=== PATIENT | female | born 1975 | race Caucasian/White ===

== ENCOUNTER 2017-03-21 08:33 | Emergency (ER) | END 2017-03-21 11:08 | disposition home or self-care (01) ==

== ENCOUNTER 2017-09-01 10:46 | Emergency (ER) | END 2017-09-01 13:03 | disposition home or self-care (01) ==

== ENCOUNTER 2018-01-24 18:17 | Emergency (ER) | END 2018-01-24 19:51 | disposition home or self-care (01) ==

== ENCOUNTER 2018-07-28 14:08 | Inpatient (IN) | payer MEDICAID ==
[~2018-07-28] VITALS: Ht 162.6 cm; Wt 104.9 kg
[~2018-07-28 14:08] MED LIST: ACET500C5 PO; ALBU18HF INHALATION; AZIT250T PO; CYAN100T PO; IBUP-1542 PO; IBUP800T48 PO; METH500T PO; PRED20TA PO
[2018-07-28] MEDS ORDERED: PANTOPRAZOLE IV 80 MG in SOD CHLORIDE 0.9% 100 ML IVPB STA (15:32)
[2018-07-28] MEDS ORDERED: PANTOPRAZOLE IV 80 MG in SOD CHLORIDE 0.9% 100 ML IV STA (15:32)
--- NOTE | 2018-07-28 19:32 | ERD ---
ER Documentation Chief Complaint Chief Complaint Pt sent for hgb 5.8, hct 21.4 HPI This is a 43-year-old female who is here for anemia. The patient saw her primary care physician for checkup and he called her and told her hemoglobin was 5.8 and to go to the ER. The patient complains of generalized weakness but no clear dyspnea on exertion no heavy periods, no rectal bleeding or melena, no vomiting. Patient says she has no chest pain no fever cough or abdominal pain. ROS All systems reviewed and are negative except as per history of present illness. Medications Home Meds Discontinued Reported Medications Cyanocobalamin* (Vitamin B12*) 100 Mcg Tab, 100 MCG PO DAILY, TAB 01/08/14 Discontinued Scripts Methocarbamol* (Robaxin*) 500 Mg Tab, 500 MG PO Q6, #20 TAB Prov:SAIRA FRANCIS PA-C 01/24/18 Ibuprofen* (Motrin*) 600 Mg Tab, 600 MG PO Q6, #30 TAB Prov:SAIRA FRANCIS PA-C 01/24/18 Prednisone* (Prednisone*) 20 Mg Tab, 40 MG PO DAILY for 4 Days, TAB Prov:SAIRA FRANCIS PA-C 01/24/18 Methocarbamol* (Robaxin*) 500 Mg Tab, 500 MG PO Q8, #30 TAB Prov:GERI LEE DO 09/01/17 Ibuprofen* (Motrin*) 800 Mg Tab, 800 MG PO Q8H PRN for PAIN AND OR ELEVATED TEMP, #30 TAB Prov:GERI LEE DO 09/01/17 Acetaminophen* (Tylophen*) 500 Mg Capsule, 1 CAP PO Q6H PRN for PAIN AND OR ELEVATED TEMP, #20 CAP Prov:EDUAR ROBINS MD 03/21/17 Prednisone* (Prednisone*) 20 Mg Tab, 40 MG PO DAILY for 4 Days, TAB Start March 22, 2017 Prov:EDUAR ROBINS MD 03/21/17 Azithromycin* (Zithromax*) 250 Mg Tablet, 250 MG PO .EstradaPACK DIRECTED, #6 TAB TAKE 500 MG (2 TABS) THE FIRST DAY THEN 250 MG (1 TAB) DAYS 2-5 Prov:EDUAR ROBINS MD 03/21/17 Prednisone* (Prednisone*) 20 Mg Tab, 40 MG PO DAILY, #8 TAB 0 Refills Prov:APRIL POTTER PA-C 04/07/15 Albuterol Sulfate* (Ventolin HFA*) 18 Gm Hfa.aer.ad, 2 PUFF INHALATION Q6H, #1 INHALER 0 Refills Prov:APRIL POTTER PA-C 04/07/15 Albuterol Sulfate* (Ventolin HFA*) 18 Gm Hfa.aer.ad, 2 PUFF INHALATION Q6H, #1 INHALER 0 Refills Prov:APRIL POTTER PA-C 03/28/15 Allergies Allergies: Coded Allergies: No Known Drug Allergies (Verified Allergy, Mild, 07/28/18) PMhx/Soc History of Surgery: Yes () Anesthesia Reaction: No Hx Neurological Disorder: No Hx Respiratory Disorders: Yes (asthma) Hx Cardiac Disorders: No Hx Psychiatric Problems: No Hx Miscellaneous Medical Probl: No Hx Alcohol Use: No Hx Substance Use: No Hx Tobacco Use: No Smoking Status: Never smoker FmHx Family History: No coronary disease Physical Exam Vitals Vital Signs Date Temp Pulse Resp B/P (MAP) Pulse Ox O2 O2 Flow FiO2 Time Delivery Rate 07/28/18 98.0 59 22 108/69 100 Room Air 2.0 18:28 (82) Nasal Cannula 07/28/18 97.1 66 14 111/73 100 Room Air 17:27 (86) 07/28/18 97.1 71 14 111/75 100 Room Air 17:14 (87) 07/28/18 98.8 78 17 108/72 100 Room Air 16:15 (84) 07/28/18 Nasal 2 16:07 Cannula 07/28/18 98.8 73 17 112/73 100 Room Air 15:23 (86) 07/28/18 98.8 91 20 121/66 100 14:11 (84) Physical Exam Const: Well-developed, well-nourished Head: Atraumatic, normocephalic Eyes: Normal Conjunctiva, PERRLA, EOMI, normal sclera, no nystagmus ENT: Normal External Ears, Nose and Mouth, moist mucus membranes. Neck: Full range of motion. No meningismus, no lymphadenopathy. Resp: Clear to auscultation bilaterally, no wheezing, rhonchi, rales Cardio: Regular rate and rhythm, no murmurs, S1 S2 present Abd: Soft, non tender x 4, non distended. Normal bowel sounds, no guarding or rebound, no pulsitile abdominal masses or bruits Skin: No petechiae or rashes, no ecchymosis , no maculopapular rash Back: No midline or flank tenderness Ext: No cyanosis, or edema, FROM x 4, normal inspection, neurovascularly intact x 4 Neur: Awake and alert, STR 5/5 x 4, sensation intact x 4, no focal findings, cerebellum intact Psych: Normal Mood and Affect Result Diagram: 07/28/18 1525 07/28/18 1525 Results 24 hrs Laboratory Tests Test 07/28/18 15:25 White Blood Count 7.6 10^3/ul Red Blood Count 2.66 10^6/ul Hemoglobin 5.7 g/dl Hematocrit 20.1 % Mean Corpuscular Volume 75.6 fl Mean Corpuscular Hemoglobin 21.4 pg Mean Corpuscular Hemoglobin Concent 28.4 g/dl Red Cell Distribution Width 16.9 % Platelet Count 306 10^3/UL Mean Platelet Volume 10.3 fl Immature Granulocytes % 0.700 % Neutrophils % % Segmented Neutrophils % (Manual) 66 % Band Neutrophils % (Manual) 4 % Lymphocytes % % Lymphocytes % (Manual) 21 % Monocytes % % Monocytes % (Manual) 7 % Eosinophils % % Eosinophils % (Manual) 2 % Basophils % % Nucleated Red Blood Cells % 0.0 /100WBC Immature Granulocytes # 0.050 10^3/ul Neutrophils # 10^3/ul Neutrophils # (Manual) 5.0 10^3/ul Band Neutrophils # 0.3 10^3/ul Lymphocytes (Manual) 1.5 10^3/ul Lymphocytes # 10^3/ul Monocytes # 10^3/ul Monocytes # (Manual) 0.5 10^3/ul Eosinophils # 10^3/ul Basophils # 10^3/ul Nucleated Red Blood Cells # 10^3/ul Pathologist Review (Hematology) YES Platelet Estimate NORMAL Giant Platelets 1 % Polychromasia 2+ Hypochromasia 1+ Anisocytosis 2+ Microcytosis 2+ Prothrombin Time 12.6 Sec Prothrombin Time Ratio 1.0 INR International Normalized Ratio 0.93 Activated Partial Thromboplast Time 26.3 Sec Sodium Level 139 mmol/L Potassium Level 4.3 mmol/L Chloride Level 102 mmol/L Carbon Dioxide Level 30 mmol/L Anion Gap 7 Blood Urea Nitrogen 18 mg/dl Creatinine 0.77 mg/dl Est Glomerular Filtrat Rate mL/min > 60 mL/min Glucose Level 109 mg/dl Calcium Level 9.0 mg/dl Total Bilirubin 0.3 mg/dl Direct Bilirubin 0.00 mg/dl Indirect Bilirubin 0.3 mg/dl Aspartate Amino Transf (AST/SGOT) 41 IU/L Alanine Aminotransferase (ALT/SGPT) 53 IU/L Alkaline Phosphatase 63 IU/L Total Protein 8.2 g/dl Albumin 4.2 g/dl Globulin 4.00 g/dl Albumin/Globulin Ratio 1.05 Current Medications Medications Dose Sig/Mabel Start Time Status Last (Trade) Ordered Route PRN Stop Time Admin Dose Reason Admin Pantoprazole 100 ml @ ONCE STAT 07/28/18 DC 80 mg/Sodium 400 mls/hr IVPB 15:32 Chloride 07/28/18 15:46 Pantoprazole 100 ml @ ONCE STAT 07/28/18 80 mg/Sodium 10 mls/hr IV 15:32 Chloride 07/29/18 01:31 Procedures/MDM The patient's hemoglobin came back at 5.7 hematocrit 20.1. I will transfuse 2 units of packed red blood cells and admit the patient for anemia work-up. Because of the shortage of Protonix, I will hold this for now as she is not having any type of acute GI bleed Critical Care Time: 30 minutes Treatments/Evaluations: Close monitoring and treatment of unstable vital signs, cardiorespiratory, and neurologic status, while maintaining tight balance of fluid, respiratory, and cardiac interventions. This time includes discussing the case with the patient and the patient's family. This time does not include all procedures stated elsewhere in this record. This time also includes reviewing old records, labs and radiological studies. This time includes examining and re- examining the patient. Additionally, this time also includes arranging care with admitting and consulting physicians. Departure Diagnosis: Primary Impression: Severe anemia Condition: Stable MILA CONTRERAS DO Jul 28, 2018 19:32
[2018-07-28] MEDS ORDERED: ACETAMINOPHEN 325 MG TAB PO PRN ×2 (20:00)
[2018-07-28] MEDS ORDERED: morphine 2 MG INJ IV PRN (20:00)
[2018-07-28] MEDS ORDERED: ONDANSETRON 4 MG TAB PO PRN (20:00)
[2018-07-28] MEDS ORDERED: BISACODYL (EC) 5 MG TAB PO PRN (20:00)
[2018-07-28] MEDS ORDERED: NACL 0.9% 3 ML SYG IV SCH (20:00)
[2018-07-28] MEDS ORDERED: DOCUSATE SODIUM 100 MG CAP PO PRN (20:00)
[2018-07-28] MEDS ORDERED: ONDANSETRON 4 MG INJ IV PRN (20:00)
[2018-07-28] MEDS ORDERED: SOD CHLORIDE 0.9% 100 ML ONE (20:24)
[2018-07-28] MEDS ORDERED: IOHEXOL 300MG/ML 150 ML BTL ONE (20:24)
[2018-07-28 21:13] VITALS: PULSE 77
[2018-07-28 21:50] VITALS: Ht 162.6 cm; Wt 104.9 kg
[2018-07-28 23:03] VITALS: BP 108/68; PULSE 63; RESP 19
[2018-07-29] VITALS (10 sets, daily range): BP systolic 101–113; BP diastolic 59–71; PULSE 59–72; RESP 18–20
--- NOTE | 2018-07-29 00:43 | HP ---
Date/Time of Note Date/Time of Note DATE: 07/29/18 TIME: 00:43 Assessment/Plan VTE Prophylaxis SCD applied (from Nsg): Yes Pharmacological prophylaxis: NA/contraindicated Pharm contraindication: low risk/ambulating Lines/Catheters IV Catheter Type (from Nrsg): Saline Lock Assessment/Plan Hospital Course This is a 43-year-old female being admitted to the telemetry floor for: #1 Severe microcytic anemia: No clear source of bleeding at the current time. Suspicion at the current time is for possible etiology given patient's previous history of fibroids. We will proceed with a CT of the abdomen pelvis with and without contrast to further evaluate. Will check a stool occult blood. If there is mention of fibroids or any other further genitourinary pathology will obtain a ultrasound of the pelvis and consult [employer]. Patient has been ordered 2 units of packed red blood cells. Will repeat CBC in the a.m. every 6 hours. Will hold any anticoagulations. As there is no signs of any overt upper or lower GI bleed, will hold off on any acid blockers at the current time. Will check iron stores. We will also checktsh, lactic dehydrogenase, haptoglobin, reticulocyte. #2 morbid obesity: We will check hemoglobin A1c, lipid panel, TSH #3 DVT and GI prophylaxis: CDs, no GI prophylaxis indicated Further treatment strategy will be implemented as per the clinical course Result Diagram: 07/28/18 1525 07/28/18 1525 Results 24hrs Laboratory Tests Test 07/28/18 15:25 White Blood Count 7.6 Red Blood Count 2.66 #L Hemoglobin 5.7 #*L Hematocrit 20.1 #L Mean Corpuscular Volume 75.6 L Mean Corpuscular Hemoglobin 21.4 #L Mean Corpuscular Hemoglobin Concent 28.4 L Red Cell Distribution Width 16.9 #H Platelet Count 306 Mean Platelet Volume 10.3 # Immature Granulocytes % 0.700 H Neutrophils % Segmented Neutrophils % (Manual) 66 Band Neutrophils % (Manual) 4 Lymphocytes % Lymphocytes % (Manual) 21 Monocytes % Monocytes % (Manual) 7 Eosinophils % Eosinophils % (Manual) 2 Basophils % Nucleated Red Blood Cells % 0.0 Immature Granulocytes # 0.050 H Neutrophils # Neutrophils # (Manual) 5.0 Band Neutrophils # 0.3 Lymphocytes (Manual) 1.5 Lymphocytes # Monocytes # Monocytes # (Manual) 0.5 Eosinophils # Basophils # Nucleated Red Blood Cells # Pathologist Review (Hematology) YES Platelet Estimate NORMAL Giant Platelets 1 H Polychromasia 2+ Hypochromasia 1+ Anisocytosis 2+ Microcytosis 2+ Prothrombin Time 12.6 Prothrombin Time Ratio 1.0 INR International Normalized Ratio 0.93 Activated Partial Thromboplast Time 26.3 Sodium Level 139 Potassium Level 4.3 Chloride Level 102 Carbon Dioxide Level 30 Anion Gap 7 Blood Urea Nitrogen 18 Creatinine 0.77 Est Glomerular Filtrat Rate mL/min > 60 Glucose Level 109 Calcium Level 9.0 Total Bilirubin 0.3 Direct Bilirubin 0.00 Indirect Bilirubin 0.3 Aspartate Amino Transf (AST/SGOT) 41 Alanine Aminotransferase (ALT/SGPT) 53 Alkaline Phosphatase 63 Total Protein 8.2 H Albumin 4.2 Globulin 4.00 H Albumin/Globulin Ratio 1.05 Serum HCG, Qualitative NEGATIVE HPI/ROS Admit Date/Time Admit Date/Time Jul 28, 2018 at 19:37 Hx of Present Illness cc; abnormal labs This is a 43-year-old female who is here for anemia. The patient saw her primary care physician for checkup and he called her and told her hemoglobin was 5.8 and to go to the ER. The patient complains of generalized weakness but no clear dyspnea on exertion. no heavy periods, no hematemesis, no rectal bleeding or melena, no vomiting. Patient says she has no chest pain no fever cough or abdominal pain. Apparently to the RN she reported a history of leukemia as a child however when questioned again regarding this she denies it. She does report anemia. On review of her medical records there was a mention of previous uterine fibroid. allergies: nkda meds: see philippe ROS Const: As per HPI Eyes : No pain discharge or redness or change in visual acuity ENT: No pain, sore throat, congestion, congestion, dysphagia or discharge Respiratory: No shortness of breath, cough, sputum, wheezing, or pleuritic pain Cardiovascular: No chest pain, palpitation, PND, or edema GI : no change in appetite, abdominal pain, nausea, vomiting, diarrhea, constipation, or change in the color his stool Genitourinary: No dysuria, hematuria, flank pain , discharge or CVA tenderness Musculoskeletal: No joint pain, back pain, neck pain, restricted range of motion in neck or joints Skin: No rash, bruising or hives Neuro: No headache, dizziness, syncope, seizure, focal weakness Endocrine: No polyuria, polydipsia, temperature intolerance Psych: No hallucination, depression, anxiety or suicidal ideation PMH/Family/Social Past Medical History Anemia, questionable history of leukemia Medications Current Medications Pantoprazole 80 mg/Sodium Chloride 100 ml @ 10 mls/hr ONCE STAT IV ; Start 07/28/18 at 15:32; Stop 07/29/18 at 01:31 Ondansetron HCl (Zofran Inj) 4 mg ER BRIDGE PRN IV NAUSEA/VOMITING; Start 07/28/18 at 20:00; Stop 07/29/18 at 19:59 Acetaminophen (Tylenol Tab) 650 mg ER BRIDGE PRN PO .MILD PAIN 1-3 OR TEMP; Start 07/28/18 at 20:00; Stop 07/29/18 at 19:59 IV Flush (NS 3 ml) 3 ml PER PROTOCOL IV ; Start 07/28/18 at 20:00 Ondansetron HCl (Zofran Tab) 4 mg Q6H PRN PO NAUSEA/VOMITING; Start 07/28/18 at 20:00 Acetaminophen (Tylenol Tab) 650 mg Q6H PRN PO .PAIN 1-3 OR TEMP; Start 07/28/18 at 20:00 Morphine Sulfate (morphine) 2 mg Q4H PRN IV .PAIN 7-10; Start 07/28/18 at 20:00 Docusate Sodium (Colace) 100 mg Q12H PRN PO .CONSTIPATION; Start 07/28/18 at 20:00 Bisacodyl (Dulcolax) 5 mg DAILY PRN PO .CONSTIPATION; Start 07/28/18 at 20:00 Coded Allergies: No Known Drug Allergies (Verified Allergy, Mild, 07/28/18) Past Surgical History x2 Family History Significant Family History: no pertinent family hx Social History Alcohol Use: none Smoking Status: Never smoker Drug Use: none Exam/Review of Systems Vital Signs Vitals Vital Signs Date Temp Pulse Resp B/P (MAP) Pulse Ox O2 O2 Flow FiO2 Time Delivery Rate 07/29/18 65 00:00 07/28/18 98.1 19 108/68 99 23:03 (81) 07/28/18 Room Air 2.0 20:51 Nasal Cannula Exam Exam General: Patient is a pleasant female currently lying in bed in no acute distress HEENT: Atraumatic, normocephalic. The pupils are equal, round and reactive. Extraocular motor are intact Neck: Supple with full range of motion. No rigidity or meningismus Chest: Nontender Lungs: Clear to auscultation bilaterally no crackles rales or wheezing Heart: Normal S1-S2, Regular rhythm and rate. No murmur, S3, or S4 Abdomen: Morbidly obese, soft , nontender, nondistended , bowel sounds are present. No guarding no rebound tenderness , No masses or organomegaly. No costovertebral temporal angle mass Extremities: Normal to inspection, no edema no cyanosis Neurologic: Normal mental status, speech normal, cranial nerves II through XII are intact, motor and sensory are intact, SEUN BUITRAGO Jul 29, 2018 00:43
--- NOTE | 2018-07-29 02:29 | CONS ---
Assessment/Plan Assessment/Plan Assessment/Plan (Daily) Please refer to the consultation note by Dr. Garcia Consultation Date/Type/Reason Admit Date/Time Jul 28, 2018 at 19:37 Date of Consultation: Jul 29, 2018 Type of Consult Gynecology Reason for Consultation Severe anemia Date/Time of Note DATE: 07/29/18 TIME: 02:27 Hx of Present Illness 43-year-old admitted for severe anemia and currently receiving blood transfusion Constitutional: no complaints, improved Eyes: no complaints ENT: no complaints Respiratory: no complaints Cardiovascular: no complaints Gastrointestinal: no complaints Genitourinary: no complaints Musculoskeletal: no complaints Skin: no complaints Neurologic: no complaints Endocrine: no complaints Lymphatic: no complaints Psychological: no complaints, nl mood/affect Immunologic: no complaints Past Medical History Home Meds Discontinued Reported Medications Cyanocobalamin* (Vitamin B12*) 100 Mcg Tab, 100 MCG PO DAILY, TAB 01/08/14 Discontinued Scripts Methocarbamol* (Robaxin*) 500 Mg Tab, 500 MG PO Q6, #20 TAB Prov:SAIRA FRANCIS PA-C 01/24/18 Ibuprofen* (Motrin*) 600 Mg Tab, 600 MG PO Q6, #30 TAB Prov:SAIRA FRANCIS PA-C 01/24/18 Prednisone* (Prednisone*) 20 Mg Tab, 40 MG PO DAILY for 4 Days, TAB Prov:SAIRA FRANCIS PA-C 01/24/18 Methocarbamol* (Robaxin*) 500 Mg Tab, 500 MG PO Q8, #30 TAB Prov:GERI LEE DO 09/01/17 Ibuprofen* (Motrin*) 800 Mg Tab, 800 MG PO Q8H PRN for PAIN AND OR ELEVATED TEMP, #30 TAB Prov:GERI LEE DO 09/01/17 Acetaminophen* (Tylophen*) 500 Mg Capsule, 1 CAP PO Q6H PRN for PAIN AND OR ELEVATED TEMP, #20 CAP Prov:EDUAR ROBINS MD 03/21/17 Prednisone* (Prednisone*) 20 Mg Tab, 40 MG PO DAILY for 4 Days, TAB Start March 22, 2017 Prov:EDUAR ROBINS MD 03/21/17 Azithromycin* (Zithromax*) 250 Mg Tablet, 250 MG PO .ZACH DIRECTED, #6 TAB TAKE 500 MG (2 TABS) THE FIRST DAY THEN 250 MG (1 TAB) DAYS 2-5 Prov:EDUAR ROBINS MD 03/21/17 Prednisone* (Prednisone*) 20 Mg Tab, 40 MG PO DAILY, #8 TAB 0 Refills Prov:ABBEYAPRIL PA-C 04/07/15 Albuterol Sulfate* (Ventolin HFA*) 18 Gm Hfa.aer.ad, 2 PUFF INHALATION Q6H, #1 INHALER 0 Refills Prov:APRIL POTTER PA-C 04/07/15 Albuterol Sulfate* (Ventolin HFA*) 18 Gm Hfa.aer.ad, 2 PUFF INHALATION Q6H, #1 INHALER 0 Refills Prov:APRIL POTTER PA-C 03/28/15 Medications Current Medications Ondansetron HCl (Zofran Inj) 4 mg ER BRIDGE PRN IV NAUSEA/VOMITING; Start 07/28/18 at 20:00; Stop 07/29/18 at 19:59 Acetaminophen (Tylenol Tab) 650 mg ER BRIDGE PRN PO .MILD PAIN 1-3 OR TEMP; Start 07/28/18 at 20:00; Stop 07/29/18 at 19:59 IV Flush (NS 3 ml) 3 ml PER PROTOCOL IV ; Start 07/28/18 at 20:00 Ondansetron HCl (Zofran Tab) 4 mg Q6H PRN PO NAUSEA/VOMITING; Start 07/28/18 at 20:00 Acetaminophen (Tylenol Tab) 650 mg Q6H PRN PO .PAIN 1-3 OR TEMP; Start 07/28/18 at 20:00 Morphine Sulfate (morphine) 2 mg Q4H PRN IV .PAIN 7-10; Start 07/28/18 at 20:00 Docusate Sodium (Colace) 100 mg Q12H PRN PO .CONSTIPATION; Start 07/28/18 at 20:00 Bisacodyl (Dulcolax) 5 mg DAILY PRN PO .CONSTIPATION; Start 07/28/18 at 20:00 Allergies: Coded Allergies: No Known Drug Allergies (Verified Allergy, Mild, 07/28/18) Social History Smoking Status: Never smoker Exam/Review of Systems Exam Vitals Vital Signs Date Temp Pulse Resp B/P (MAP) Pulse Ox O2 O2 Flow FiO2 Time Delivery Rate 07/29/18 65 00:00 07/28/18 98.1 19 108/68 99 23:03 (81) 07/28/18 Room Air 2.0 20:51 Nasal Cannula Constitutional: alert, oriented, well developed Results Result Diagram: 07/28/18 1525 07/28/18 1525 Results 24hrs Hematology - 72 Hrs Test 07/28/18 15:25 07/29/18 05:48 Hematocrit 20.1 % (37.0-47.0) #L 26.0 % (37.0-47.0) #L Hemoglobin 5.7 g/dl (12.0-16.0) 7.7 g/dl (12.0-16.0) #L Mean Corpuscular 21.4 pg (29.0-33.0) #L 23.3 pg (29.0-33.0) L Hemoglobin Mean Corpuscular 28.4 g/dl (32.0-37.0) L 29.6 g/dl (32.0-37.0) L Hemoglobin Concent Mean Corpuscular Volume 75.6 fl (82.0-101.0) L 78.5 fl (82.0-101.0) L Mean Platelet Volume 10.3 fl (7.4-10.4) # 10.0 fl (7.4-10.4) Monocytes # (Manual) 0.5 10^3/ul (0.3-0.9) Platelet Count 306 10^3/UL (140-415) 280 10^3/UL (140-415) Red Blood Count 2.66 10^6/ul (4.20-5.40) 3.31 10^6/ul (4.20-5.40) #L #L Red Cell Distribution 16.9 % (11.5-14.5) #H 18.8 % (11.5-14.5) H Width White Blood Count 7.6 10^3/ul (4.8-10.8) 7.0 10^3/ul (4.8-10.8) Chemistry Test 07/28/18 15:25 07/29/18 05:48 Sodium Level 139 mmol/L (135-144) 139 mmol/L (135-144) Potassium Level 4.3 mmol/L (3.5-5.1) 3.9 mmol/L (3.5-5.1) Chloride Level 102 mmol/L (97-110) 103 mmol/L (97-110) Carbon Dioxide Level 30 mmol/L (21-31) 28 mmol/L (21-31) Anion Gap 7 (5-13) 8 (5-13) Blood Urea Nitrogen 18 mg/dl (7-20) 14 mg/dl (7-20) Creatinine 0.77 mg/dl (0.44-1.00) 0.77 mg/dl (0.44-1.00) Est Glomerular Filtrat > 60 mL/min (>60) > 60 mL/min (>60) Rate mL/min Glucose Level 109 mg/dl (70-220) 99 mg/dl (70-220) Calcium Level 9.0 mg/dl (8.4-10.2) 8.9 mg/dl (8.4-10.2) Total Bilirubin 0.3 mg/dl (0.2-1.3) 0.8 mg/dl (0.2-1.3) Direct Bilirubin 0.00 mg/dl (0.00-0.20) 0.00 mg/dl (0.00-0.20) Indirect Bilirubin 0.3 mg/dl (0-1.1) 0.8 mg/dl (0-1.1) Aspartate Amino 41 IU/L (15-46) 49 IU/L (15-46) H Transf (AST/SGOT) Alanine 53 IU/L (13-69) 57 IU/L (13-69) Aminotransferase (ALT/SGPT) Alkaline Phosphatase 63 IU/L (42-121) 57 IU/L (42-121) Total Protein 8.2 g/dl (6.1-8.1) H 7.4 g/dl (6.1-8.1) Albumin 4.2 g/dl (3.3-4.9) 3.7 g/dl (3.3-4.9) Globulin 4.00 g/dl (1.3-3.2) H 3.70 g/dl (1.3-3.2) H Albumin/Globulin Ratio 1.05 1.00 Serum HCG, Qualitative NEGATIVE (NEGATIVE) Hemoglobin A1c 6.2 % (0-5.9) H Magnesium Level 2.1 mg/dl (1.7-2.5) Iron Level 82 ug/dl (35-150) Total Iron Binding Capacity 449 ug/dl (241-421) H Percent Iron Saturation 18 % SAT (22-52) L Ferritin 5.5 ng/ml (6.2-137.0) L Lactate Dehydrogenase 774 IU/L (313-618) H Triglycerides Level 86 mg/dl (0-149) Cholesterol Level 161 mg/dl (100-200) LDL Cholesterol, Calculated 107 mg/dl HDL Cholesterol 37 mg/dl (34-88) Cholesterol/HDL Ratio 4.3 RATIO Thyroid Stimulating Pending Hormone (TSH) Imaging Imaging PROCEDURE: CT abdomen and pelvis with and without contrast. CLINICAL INDICATION: Anemia. Leukemia. Uterine fibroid. TECHNIQUE: CT of the abdomen/pelvis was performed utilizing axial images with reconstructions in sagittal and coronal planes before and following the intravenous administration of 100 cc of Omnipaque-300 contrast. The administered radiation dose is CTDI 23.60, 23.07 mGy, DLP 1365.99, 1330.75 mGy-cm. One or more of the following dose reduction techniques were used: Automated exposure control, Adjustment of the mA and/or kV according to patient size, or Use of iterative reconstruction technique. DICOM images are available. COMPARISON: There are no similar studies submitted for comparison. FINDINGS: Lung bases: The lung bases are clear.The heart is normal size without pericardial effusion. CT ABDOMEN: Gastrointestinal tract: There is no bowel obstruction. The The appendix is normal size without inflammatory changes.No abnormal colonic wall thickening is identified.There is no pneumoperitoneum. Liver: The liver is enlarged. There is hepatic fatty infiltration. There is no intrahepatic ductal dilatation. Gallbladder: A large gallstone is noted. Pancreas: The pancreas is grossly unremarkable. Spleen: The spleen is normal size. There is a 3.8 cm septated splenic cystic les ion which is indeterminate. There are few calcified lesions within the spleen which may represent splenic granulomas versus treated disease. Kidneys: The kidneys are normal in size and contour.No renal calculi are identified.There is no evidence of hydronephrosis. Adrenal glands: The bilateral adrenal glands are unremarkable. Retroperitoneum: There is no retroperitoneal adenopathy.The aorta is normal in caliber. CT PELVIS: Pelvic organs: The uterus is present. There is a probable 1.3 cm left lateral uterine body fibroid extending into the endometrium. There is also heterogeneity of the lower uterine segment/cervix measuring 2.5 cm. Bladder: The bladder is unremarkable. There is no pelvic free fluid.No pelvic adenopathy is identified. Osseous structures: No destructive lytic or blastic osseous lesion is identified. IMPRESSION: 1. No acute abdominal pathology. 2. There is a 3.8 cm septated splenic cystic lesion which is indeterminate. There are few calcified lesions within the spleen which may represent splenic granulomas versus treated disease. MRI of the abdomen with and without contrast may be performed as clinically warranted. 3. Cholelithiasis. 4. Hepatomegaly and hepatic fatty infiltration. Correlate with LFTs. 5. Heterogeneity of the lower uterine segment/cervix measuring 2.5 cm. This may represent uterine fibroid or Nabothian cyst. Cervical malignancy cannot be excluded. Ultrasound of the pelvis and further workup is recommended as clinically warranted. 6. No abdominal lymphadenopathy. Further findings as detailed above. RPTAT: HVF .Praneeth Bah MD, MD Date Time Electronically viewed and signed by .Praneeth Bah MD, MD on 07/28/2018 21:14 .F/ CC: SEUN BUITRAGO [id number] [place] [address] Radiology Main Line: [phone] DIAGNOSTIC IMAGING REPORT Patient: DELIA BENNETT : 1975 Age: 43 Sex: F MR #: [id number] DOS: 07/29/18 0000 Ordering MD: SEUN BUITRAGO MD [facility]: US Pelvis. CLINICAL INDICATION: Questionable uterine mass on CT scan TECHNIQUE: Transabdominal and transvaginal pelvic ultrasound are performed. COMPARISON: 07/28/2018 and 01/08/2014 FINDINGS: The uterus is heterogeneous in echogenicity and anteverted in orientation. The uterus measures 10.2 x 4.9 x 5.8 cm. There is a 1.8 cm posterior fundal intramural fibroid. A heterogeneous slightly thickened endometrium is seen measuring 1.6 cm.. The cervix is normal in appearance. As before there are multiple Nabothian cyst. This likely accounts for the appearance on CT scan. Right ovary is identified. There is 1.7 1.9 cm simple appearing right ovarian cyst / follicle. Left ovary is not seen. There are no complex adnexal masses. Normal Doppler flow is noted right ovary. Right ovary measures 1.9 x 2.0 cm. There is no free fluid in the pelvis IMPRESSION: 1. 1.6 cm intramural fibroid. 2. Thickened slightly heterogeneous appearing endometrium. This should be reevaluated after 1 cycle to document resolution to normal thickness. 3. Cluster Nabothian cyst. This likely corresponds delete lesion suspected on CT scan. 4. Right ovary unremarkable with small follicles. 5. Left ovary not seen. There are no complex adnexal masses RPTAT: HH .Sj Gonzalez MD, MD Date Time Electronically viewed and signed by .Sj Gonzalez MD, MD on 07/29/2018 11:35 .W/ CC: SEUN BUITRAGO [id number] Medications Medication Current Medications Ondansetron HCl (Zofran Inj) 4 mg ER BRIDGE PRN IV NAUSEA/VOMITING; Start 07/28/18 at 20:00; Stop 07/29/18 at 19:59 Acetaminophen (Tylenol Tab) 650 mg ER BRIDGE PRN PO .MILD PAIN 1-3 OR TEMP; Start 07/28/18 at 20:00; Stop 07/29/18 at 19:59 IV Flush (NS 3 ml) 3 ml PER PROTOCOL IV ; Start 07/28/18 at 20:00 Ondansetron HCl (Zofran Tab) 4 mg Q6H PRN PO NAUSEA/VOMITING; Start 07/28/18 at 20:00 Acetaminophen (Tylenol Tab) 650 mg Q6H PRN PO .PAIN 1-3 OR TEMP; Start 07/28/18 at 20:00 Morphine Sulfate (morphine) 2 mg Q4H PRN IV .PAIN 7-10; Start 07/28/18 at 20:00 Docusate Sodium (Colace) 100 mg Q12H PRN PO .CONSTIPATION; Start 07/28/18 at 20:00 Bisacodyl (Dulcolax) 5 mg DAILY PRN PO .CONSTIPATION; Start 07/28/18 at 20:00 PAM MARTIN MD Jul 29, 2018 02:29
[2018-07-29] MEDS ORDERED: LORAZEPAM 2 MG INJ IV PRN (06:00)
--- NOTE | 2018-07-29 17:03 | CONS ---
Assessment/Plan Assessment/Plan Hospital Course (Demo Recall) Severe anemia Unclear etiology Cannot rule out AMMUNITION COMPONENTS INSPECTOR versus GI origin Patient currently being evaluated by primary care physician rule out GI origin Cannot rule out AMMUNITION COMPONENTS INSPECTOR origin for anemia. Cycles lately irregular with oligomenorrhea menometrorrhagia consistent with anovulatory cycles patient also appears to be prediabetes based on hemoglobin A1c Due to body habitus and prediabetes cystitis and perimenopausal anovulatory cycles at risk for endometrial hyperplasia/endometrial cancer Recommended the patient to proceed with endometrial biopsy. Ultrasound otherwise unremarkable. Biopsy can be done as outpatient and primary AMMUNITION COMPONENTS INSPECTOR office. Recommended patient to be seen in primary AMMUNITION COMPONENTS INSPECTOR office after discharge from the hospital for Pap smear, endometrial biopsy and completion of work-up Patient also due for mammogram. Denies feeling any breast lump or mass. Breast exam normal. Patient recommended to take progesterone 10 days a month for menstrual regulation after and if mammogram is normal Follow-up with thyroid hormones as hypothyroidism or hyperthyroidism can also contribute to abnormal bleeding. Recommended continuation of work-up for GI rule out GI origin Recommended patient to take iron twice a day with stool softener as well as vitamin C for repletion of iron stores Patient can be discharged home with above plan Will sign off at this time Please reconsult if you have any other questions. Consultation Date/Type/Reason Admit Date/Time Jul 28, 2018 at 19:37 Date of Consultation: Jul 29, 2018 Type of Consult AMMUNITION COMPONENTS INSPECTOR consultation Reason for Consultation Evaluation for severe anemia, AMMUNITION COMPONENTS INSPECTOR origin Date/Time of Note DATE: 07/29/18 TIME: 16:54 Hx of Present Illness 43-year-old G2, P2 female was sent by primary care physician to the hospital due to severe anemia noted during physical examination. Patient denies any symptoms. She denies any headache, fatigue, shortness of breath, chest pain, dizziness, lightheadedness or any other complaints. She denies any exercise intolerance. Patient reports cycles has been regular with average flow but recently skipped her cycles for a couple of months and had been bleeding intermittently since March for the last 4 months. Patient denies any significant AMMUNITION COMPONENTS INSPECTOR history in the past except that had a history of abnormal Pap smear that was offered in the past biopsy however never was done. Patient reports cycle has been always regular monthly except this recent episode of abnormal uterine bleeding with oligomenorrhea menometrorrhagia. Patient had a CT of abdomen and pelvis that showed evidence of a questionable lesion in the cervical area however the rest of the pelvis exam is unremarkable. There is no evidence of lymphadenopathy. Pelvic ultrasound showed small fibroids and area of concern in the cervix was noted to be likely related to presence of nabothian cysts. No other pelvic pathology noted. Endometrial lining thickened that appeared to be correlated to the menstruation and recommended to have a follow-up ultrasound after cycle. Patient had been admitted currently underwent blood transfusion. She is request to go home. She denies any known history of thyroid problem in the past. She denies any change in her bowel habits, pencil thin stool or blood in the stool or black tarry dark stool. She is currently being evaluated by primary team for GI versus AMMUNITION COMPONENTS INSPECTOR origin for severe anemia. Constitutional: no complaints, improved; No chills, No diaphoresis, No disoriented, No febrile, No poor po, No requiring IVF, No requiring O2, No other Eyes: No no complaints, No pain, No discharge, No redness, No visual change, No other ENT: No no complaints, No bleeding, No pain, No congestion, No discharge, No dysphagia, No sore throat, No other Respiratory: No no complaints, No pain, No cough, No pleuritic pain, No shortness of breath, No sputum, No wheezing, No other Cardiovascular: No no complaints, No chest pain, No edema, No lightheadedness, No orthopenea, No palpitations, No paroxysmal nocturnal dyspnea, No other Gastrointestinal: blood; No no complaints, No pain, No constipation, No decreased appetite, No diarrhea, No flatus, No nausea, No passing stool, No vomiting, No other Genitourinary: bleeding; No no complaints, No dysuria, No discharge, No flank pain, No hematuria, No other Musculoskeletal: No no complaints, No back pain, No bone/joint pain, No neck pain, No restricted range of motion, No swelling, No other Skin: No no complaints, No bruising, No erythema, No laceration, No pruritis, No rash, No skin lesions, No other Neurologic: No no complaints, No confusion, No dizziness, No focal-weakness, No headache, No syncope, No seizure, No other Endocrine: No no complaints, No polyuria, No polydypsia, No dry skin, No temp intolerance, No other Lymphatic: No no complaints, No adenopathy, No tender nodes, No lymphadema, No other Psychological: No no complaints, No nl mood/affect, No anxiety, No confusion, No depression, No suicidal, No other Immunologic: No no complaints, No immunodeficiency, No pruritis, No rhinitis, No urticaria, No other Past Medical History Past medical history: 1 morbid obesity. 2. Prediabetes based on hemoglobin A1c Home Meds Discontinued Reported Medications Cyanocobalamin* (Vitamin B12*) 100 Mcg Tab, 100 MCG PO DAILY, TAB 01/08/14 Discontinued Scripts Methocarbamol* (Robaxin*) 500 Mg Tab, 500 MG PO Q6, #20 TAB Prov:SAIRA FRANCIS PA-C 01/24/18 Ibuprofen* (Motrin*) 600 Mg Tab, 600 MG PO Q6, #30 TAB Prov:SAIRA FRANCIS PA-C 01/24/18 Prednisone* (Prednisone*) 20 Mg Tab, 40 MG PO DAILY for 4 Days, TAB Prov:SAIRA FRANCIS PA-C 01/24/18 Methocarbamol* (Robaxin*) 500 Mg Tab, 500 MG PO Q8, #30 TAB Prov:GERI LEE DO 09/01/17 Ibuprofen* (Motrin*) 800 Mg Tab, 800 MG PO Q8H PRN for PAIN AND OR ELEVATED TEMP, #30 TAB Prov:GERI LEE DO 09/01/17 Acetaminophen* (Tylophen*) 500 Mg Capsule, 1 CAP PO Q6H PRN for PAIN AND OR ELEVATED TEMP, #20 CAP Prov:EDUAR ROBINS MD 03/21/17 Prednisone* (Prednisone*) 20 Mg Tab, 40 MG PO DAILY for 4 Days, TAB Start March 22, 2017 Prov:EDUAR ROBINS MD 03/21/17 Azithromycin* (Zithromax*) 250 Mg Tablet, 250 MG PO .ZPACK DIRECTED, #6 TAB TAKE 500 MG (2 TABS) THE FIRST DAY THEN 250 MG (1 TAB) DAYS 2-5 Prov:EDUAR ROBINS MD 03/21/17 Prednisone* (Prednisone*) 20 Mg Tab, 40 MG PO DAILY, #8 TAB 0 Refills Prov:APRIL POTTER PA-C 04/07/15 Albuterol Sulfate* (Ventolin HFA*) 18 Gm Hfa.aer.ad, 2 PUFF INHALATION Q6H, #1 INHALER 0 Refills Prov:APRIL POTTER PA-C 04/07/15 Albuterol Sulfate* (Ventolin HFA*) 18 Gm Hfa.aer.ad, 2 PUFF INHALATION Q6H, #1 INHALER 0 Refills Prov:APRIL POTTER PA-C 03/28/15 Medications Current Medications Ondansetron HCl (Zofran Inj) 4 mg ER BRIDGE PRN IV NAUSEA/VOMITING; Start 07/28/18 at 20:00; Stop 07/29/18 at 19:59 Acetaminophen (Tylenol Tab) 650 mg ER BRIDGE PRN PO .MILD PAIN 1-3 OR TEMP; Start 07/28/18 at 20:00; Stop 07/29/18 at 19:59 IV Flush (NS 3 ml) 3 ml PER PROTOCOL IV ; Start 07/28/18 at 20:00 Ondansetron HCl (Zofran Tab) 4 mg Q6H PRN PO NAUSEA/VOMITING; Start 07/28/18 at 20:00 Acetaminophen (Tylenol Tab) 650 mg Q6H PRN PO .PAIN 1-3 OR TEMP; Start 07/28/18 at 20:00 Morphine Sulfate (morphine) 2 mg Q4H PRN IV .PAIN 7-10; Start 07/28/18 at 20:00 Docusate Sodium (Colace) 100 mg Q12H PRN PO .CONSTIPATION; Start 07/28/18 at 20:00 Bisacodyl (Dulcolax) 5 mg DAILY PRN PO .CONSTIPATION; Start 07/28/18 at 20:00 Lorazepam (Ativan) 0.5 mg PRN PRN IV prior to MRI; Start 07/29/18 at 06:00 Allergies: Coded Allergies: No Known Drug Allergies (Verified Allergy, Mild, 07/28/18) Past Surgical History Past surgical history: x2 and BTL and last Family History Significant Family History: other (Family history significant for hypercholesterolemia in her father and cancer in father.) Social History Alcohol Use: none Smoking Status: Never smoker Drug Use: none Exam/Review of Systems Exam Vitals Vital Signs Date Temp Pulse Resp B/P (MAP) Pulse Ox O2 O2 Flow FiO2 Time Delivery Rate 07/29/18 70 16:01 07/29/18 97.8 104/71 100 Room Air 15:45 (82) 07/29/18 20 11:05 07/28/18 2.0 20:51 Intake and Output 07/28/18 07/28/18 07/29/18 1515:00 23:00 07:00 IntakeIntake Total 350 ml BalanceBalance 350 ml Constitutional: alert, oriented, well developed, other (Appears pale) Psych: no complaints, nl mood/affect Head: normocephalic, atraumatic Eyes: nl conjunctiva, EOMI, nl lids ENMT: nl external ears & nose, nl lips & teeth Neck: supple, non-tender Respiratory: clear to auscultation, normal air movement Cardiovascular: regular rate and rhythm, nl pulses Gastrointestinal: soft, nl liver, spleen, non-tender Genitourinary - Female: nl adnexae, other (External genitalia within normal limits. Speculum examination: Cervix appears normal without any apparent lesion. Vagina normal without any lesion. Decreased vaginal rugae consistent with postmenopausal atrophic vaginitis noted. Bimanual examination: Uterus appears to be 10 to 11 cm size nontender, no fullness or tenderness in adnexa noted) Musculoskeletal: No nl extremities to inspection, No nl gait and stance, No joint tenderness, No muscle tone, No muscle weakness, No range of motion, No spine non-tender, No swelling, No other Extremities: No normal pulses, No calf tenderness, No cyanosis, No clubbing, No edema, No pitting pedal edema, No palpable cord, No tenderness, No other Neurological: No VP [employer] II-XII intact, No nl mental status, No nl speech, No nl strength, No confused, No DTR's symmetric, No focal weakness, No lethargic, No numbness, No reflexes, No unresponsive, No other Skin: No nl turgor, No rash or lesions, No diaphoresis, No ecchymosis, No laceration, No puncture, No other Results Result Diagram: 07/29/1848 07/29/18 0548 Results 24hrs Laboratory Tests Test 07/29/18 05:48 White Blood Count 7.0 Red Blood Count 3.31 #L Hemoglobin 7.7 #L Hematocrit 26.0 #L Mean Corpuscular Volume 78.5 L Mean Corpuscular Hemoglobin 23.3 L Mean Corpuscular Hemoglobin Concent 29.6 L Red Cell Distribution Width 18.8 H Platelet Count 280 Mean Platelet Volume 10.0 Immature Granulocytes % 0.300 Neutrophils % 65.7 Lymphocytes % 23.5 Monocytes % 7.0 Eosinophils % 2.6 Basophils % 0.9 Nucleated Red Blood Cells % 0.0 Immature Granulocytes # 0.020 Neutrophils # 4.6 Lymphocytes # 1.6 Monocytes # 0.5 Eosinophils # 0.2 Basophils # 0.1 Nucleated Red Blood Cells # 0.0 Absolute Reticulocyte Count 0.070 Percent Reticulocyte Count 2.1 H Sodium Level 139 Potassium Level 3.9 Chloride Level 103 Carbon Dioxide Level 28 Anion Gap 8 Blood Urea Nitrogen 14 Creatinine 0.77 Est Glomerular Filtrat Rate mL/min > 60 Glucose Level 99 Hemoglobin A1c 6.2 H Calcium Level 8.9 Magnesium Level 2.1 Iron Level 82 Total Iron Binding Capacity 449 H Percent Iron Saturation 18 L Ferritin 5.5 L Total Bilirubin 0.8 Direct Bilirubin 0.00 Indirect Bilirubin 0.8 Aspartate Amino Transf (AST/SGOT) 49 H Alanine Aminotransferase (ALT/SGPT) 57 Alkaline Phosphatase 57 Lactate Dehydrogenase 774 H Total Protein 7.4 Albumin 3.7 Globulin 3.70 H Albumin/Globulin Ratio 1.00 Triglycerides Level 86 Cholesterol Level 161 LDL Cholesterol, Calculated 107 HDL Cholesterol 37 Cholesterol/HDL Ratio 4.3 Thyroid Stimulating Hormone (TSH) 119.000 H Imaging Imaging PROCEDURE: CT abdomen and pelvis with and without contrast. CLINICAL INDICATION: Anemia. Leukemia. Uterine fibroid. TECHNIQUE: CT of the abdomen/pelvis was performed utilizing axial images with reconstructions in sagittal and coronal planes before and following the intravenous administration of 100 cc of Omnipaque-300 contrast. The administered radiation dose is CTDI 23.60, 23.07 mGy, DLP 1365.99, 1330.75 mGy-cm. One or more of the following dose reduction techniques were used: Automated exposure control, Adjustment of the mA and/or kV according to patient size, or Use of iterative reconstruction technique. DICOM images are available. COMPARISON: There are no similar studies submitted for comparison. FINDINGS: Lung bases: The lung bases are clear.The heart is normal size without pericardial effusion. CT ABDOMEN: Gastrointestinal tract: There is no bowel obstruction. The The appendix is normal size without inflammatory changes.No abnormal colonic wall thickening is identified.There is no pneumoperitoneum. Liver: The liver is enlarged. There is hepatic fatty infiltration. There is no intrahepatic ductal dilatation. Gallbladder: A large gallstone is noted. Pancreas: The pancreas is grossly unremarkable. Spleen: The spleen is normal size. There is a 3.8 cm septated splenic cystic lesion which is indeterminate. There are few calcified lesions within the spleen which may represent splenic granulomas versus treated disease. Kidneys: The kidneys are normal in size and contour.No renal calculi are identified.There is no evidence of hydronephrosis. Adrenal glands: The bilateral adrenal glands are unremarkable. Retroperitoneum: There is no retroperitoneal adenopathy.The aorta is normal in caliber. CT PELVIS: Pelvic organs: The uterus is present. There is a probable 1.3 cm left lateral uterine body fibroid extending into the endometrium. There is also heterogeneity of the lower uterine segment/cervix measuring 2.5 cm. Bladder: The bladder is unremarkable. There is no pelvic free fluid.No pelvic adenopathy is identified. Osseous structures: No destructive lytic or blastic osseous lesion is identified. IMPRESSION: 1. No acute abdominal pathology. 2. There is a 3.8 cm septated splenic cystic lesion which is indeterminate. There are few calcified lesions within the spleen which may represent splenic granulomas versus treated disease. MRI of the abdomen with and without contrast may be performed as clinically warranted. 3. Cholelithiasis. 4. Hepatomegaly and hepatic fatty infiltration. Correlate with LFTs. 5. Heterogeneity of the lower uterine segment/cervix measuring 2.5 cm. This may represent uterine fibroid or Nabothian cyst. Cervical malignancy cannot be excluded. Ultrasound of the pelvis and further workup is recommended as clinically warranted. 6. No abdominal lymphadenopathy. Further findings as detailed above. RPTAT: HVF .Praneeth Bah MD, Date Time Electronically viewed and signed by .Praneeth Bah MD, on 07/28/2018 21:14 .F/ CC: DIAMOND BUITRAGOB [id number] Medications Medication Current Medications Ondansetron HCl (Zofran Inj) 4 mg ER BRIDGE PRN IV NAUSEA/VOMITING; Start 07/28/18 at 20:00; Stop 07/29/18 at 19:59 Acetaminophen (Tylenol Tab) 650 mg ER BRIDGE PRN PO .MILD PAIN 1-3 OR TEMP; Start 07/28/18 at 20:00; Stop 07/29/18 at 19:59 IV Flush (NS 3 ml) 3 ml PER PROTOCOL IV ; Start 07/28/18 at 20:00 Ondansetron HCl (Zofran Tab) 4 mg Q6H PRN PO NAUSEA/VOMITING; Start 07/28/18 at 20:00 Acetaminophen (Tylenol Tab) 650 mg Q6H PRN PO .PAIN 1-3 OR TEMP; Start 07/28/18 at 20:00 Morphine Sulfate (morphine) 2 mg Q4H PRN IV .PAIN 7-10; Start 07/28/18 at 20:00 Docusate Sodium (Colace) 100 mg Q12H PRN PO .CONSTIPATION; Start 07/28/18 at 20:00 Bisacodyl (Dulcolax) 5 mg DAILY PRN PO .CONSTIPATION; Start 07/28/18 at 20:00 Lorazepam (Ativan) 0.5 mg PRN PRN IV prior to MRI; Start 07/29/18 at 06:00 FLORENCE HO MD Jul 29, 2018 17:03
--- NOTE | 2018-07-29 18:32 | PN ---
Date/Time of Note Date/Time of Note DATE: 07/29/18 TIME: 18:27 Assessment/Plan VTE Prophylaxis Risk score (from Nsg)>0 risk: 2 SCD applied (from Nsg): No SCD contraindicated: low risk/ambulating Pharmacological prophylaxis: NA/contraindicated Pharm contraindication: bleeding Lines/Catheters IV Catheter Type (from Nrs): Saline Lock Assessment/Plan Assessment/Plan 43 yo obese woman with remote history of leukemia (>30 years ago) presents with anemia # Severe microcytic anemia: - Likely from heavy menses plus hypothyroidism. - PRBC transfusion to goal Hgb>7 - Also will give IV ferrlicit. - Outpatient gynecology followup for endometrial biopsy. #Hypothyroidism - TSH elevated in the 100s - Will check FT4 to confirm - Start weight-based levothyroxine. Based on IBW her dose is 89 mcg, but will increase to 100mcg dose for now due to massive obesity and anticipating starting iron pills, which interfere with absorption. # DVT and GI prophylaxis: CDs, no GI prophylaxis indicated Dispo: Anticipate discharge in AM. Result Diagram: 07/29/18 0548 07/29/18 0548 Subjective 24 Hr Interval Summary Free Text/Dictation No acute overnight events. Patient feeling well. No vaginal bleeding currently. Exam/Review of Systems Exam Vitals Vital Signs Date Temp Pulse Resp B/P (MAP) Pulse Ox O2 O2 Flow FiO2 Time Delivery Rate 07/29/18 70 16:01 07/29/18 97.8 104/71 100 Room Air 15:45 (82) 07/29/18 20 11:05 07/28/18 2.0 20:51 Intake and Output 07/28/18 07/28/18 07/29/18 1515:00 23:00 07:00 IntakeIntake Total 350 ml BalanceBalance 350 ml Exam General: Obese woman sitting up in chair, no complaints. HEENT: Atraumatic, normocephalic. The pupils are equal, round and reactive. Extraocular motor are intact Neck: Supple with full range of motion. No rigidity or meningismus Chest: Nontender Lungs: Clear to auscultation bilaterally no crackles rales or wheezing Heart: Normal S1-S2, Regular rhythm and rate. No murmur, S3, or S4 Abdomen: Morbidly obese, soft , nontender, nondistended , bowel sounds are present. Extremities: Normal to inspection, no edema no cyanosis Results Results 24hrs Laboratory Tests Test 07/29/18 05:48 White Blood Count 7.0 Red Blood Count 3.31 #L Hemoglobin 7.7 #L Hematocrit 26.0 #L Mean Corpuscular Volume 78.5 L Mean Corpuscular Hemoglobin 23.3 L Mean Corpuscular Hemoglobin Concent 29.6 L Red Cell Distribution Width 18.8 H Platelet Count 280 Mean Platelet Volume 10.0 Immature Granulocytes % 0.300 Neutrophils % 65.7 Lymphocytes % 23.5 Monocytes % 7.0 Eosinophils % 2.6 Basophils % 0.9 Nucleated Red Blood Cells % 0.0 Immature Granulocytes # 0.020 Neutrophils # 4.6 Lymphocytes # 1.6 Monocytes # 0.5 Eosinophils # 0.2 Basophils # 0.1 Nucleated Red Blood Cells # 0.0 Absolute Reticulocyte Count 0.070 Percent Reticulocyte Count 2.1 H Sodium Level 139 Potassium Level 3.9 Chloride Level 103 Carbon Dioxide Level 28 Anion Gap 8 Blood Urea Nitrogen 14 Creatinine 0.77 Est Glomerular Filtrat Rate mL/min > 60 Glucose Level 99 Hemoglobin A1c 6.2 H Calcium Level 8.9 Magnesium Level 2.1 Iron Level 82 Total Iron Binding Capacity 449 H Percent Iron Saturation 18 L Ferritin 5.5 L Total Bilirubin 0.8 Direct Bilirubin 0.00 Indirect Bilirubin 0.8 Aspartate Amino Transf (AST/SGOT) 49 H Alanine Aminotransferase (ALT/SGPT) 57 Alkaline Phosphatase 57 Lactate Dehydrogenase 774 H Total Protein 7.4 Albumin 3.7 Globulin 3.70 H Albumin/Globulin Ratio 1.00 Triglycerides Level 86 Cholesterol Level 161 LDL Cholesterol, Calculated 107 HDL Cholesterol 37 Cholesterol/HDL Ratio 4.3 Thyroid Stimulating Hormone (TSH) 119.000 H Medications Medication Current Medications Ondansetron HCl (Zofran Inj) 4 mg ER BRIDGE PRN IV NAUSEA/VOMITING; Start 07/28/18 at 20:00; Stop 07/29/18 at 19:59 Acetaminophen (Tylenol Tab) 650 mg ER BRIDGE PRN PO .MILD PAIN 1-3 OR TEMP; Start 07/28/18 at 20:00; Stop 07/29/18 at 19:59 IV Flush (NS 3 ml) 3 ml PER PROTOCOL IV ; Start 07/28/18 at 20:00 Ondansetron HCl (Zofran Tab) 4 mg Q6H PRN PO NAUSEA/VOMITING; Start 07/28/18 at 20:00 Acetaminophen (Tylenol Tab) 650 mg Q6H PRN PO .PAIN 1-3 OR TEMP; Start 07/28/18 at 20:00 Morphine Sulfate (morphine) 2 mg Q4H PRN IV .PAIN 7-10; Start 07/28/18 at 20:00 Docusate Sodium (Colace) 100 mg Q12H PRN PO .CONSTIPATION; Start 07/28/18 at 20:00 Bisacodyl (Dulcolax) 5 mg DAILY PRN PO .CONSTIPATION; Start 07/28/18 at 20:00 Lorazepam (Ativan) 0.5 mg PRN PRN IV prior to MRI; Start 07/29/18 at 06:00 Ferric Sodium Gluconate Complex 125 mg/Sodium Chloride 100 ml @ 100 mls/hr DAILY@1300 IVPB ; Start 07/30/18 at 13:00; Stop 08/01/18 at 13:59 LOUIE DE LA GARZA MD Jul 29, 2018 18:32
[2018-07-30] VITALS (7 sets, daily range): BP systolic 99–109; BP diastolic 56–69; PULSE 61–76; RESP 18–20
[2018-07-30] MEDS ORDERED: LEVOTHYROXINE 100 MCG TAB PO SCH (06:00)
[2018-07-30] MEDS ORDERED: ALBU18HF INHALATION (11:20)
[2018-07-30] MEDS ORDERED: FER325 PO (11:20)
[2018-07-30] MEDS ORDERED: LEVO125T7 PO (11:21)
--- NOTE | 2018-07-30 11:25 | PDOCDIS ---
Discharge Instructions DIAGNOSIS Discharge Diagnosis Iron-deficiency anemia Hypothyroidism CONDITION [id number] Patient Condition: [id number] Good HOME CARE INSTRUCTIONS: [id number] Diet Instructions: [id number] Regular ACTIVITY: [id number] Activity Restrictions: [id number] No Restrictions FOLLOW UP/APPOINTMENTS Follow-up Plan 1. Take levothyroxine early in the morning. Do not eat anything, especially milk or iron, within 2 hours before or after taking it. 2. Take iron tablet in the afternoon or before bed. It may cause constipation. For severe constipation can get [id number] Miralax or Senna. 3. Use albuterol inhaler as needed for wheezing. 4. Make an appointment with your primary care doctor. You should get your thyroid levels checked once a month. 5. Make an appointment with your manager organizational. You may need a biopsy of the lining of your uterus. 1. [place] levothyroxine temprano en la maana. No coma nada, especialmente leche o jaimie, dentro de las 2 horas antes o despus de tomarlo. 2. [place] la tableta de jaimie por la tarde o antes de acostarse. Puede causar estreimiento. Para el estreimiento cirilo puede obtener sin receta Miralax o Senna. 3. Use el inhalador de albuterol segn sea necesario para sibilancias. 4. Tangela myrna spencer con desir mdico de atencin primaria. Usted debe controlar rosalinda niveles de tiroides myrna vez al mes. 5. [place] myrna spencer con desir gineclogo. Es posible que necesite myrna biopsia del revestimiento del tero. LOUIE DE LA GARZA MD Jul 30, 2018 11:25
[2018-07-30] MEDS ORDERED: SOD FERRIC GLUC COMPLX 125 MG in SOD CHLORIDE 0.9% 100 ML IVPB SCH (13:00)
--- NOTE | 2018-07-30 15:20 | DS ---
Date/Time of Note Date/Time of Note DATE: 07/30/18 TIME: 15:15 Discharge Summary Admission/Discharge Info Admit Date/Time Jul 28, 2018 at 19:37 Discharge Date/Time Jul 30, 2018 at 13:23 Discharge Diagnosis Iron-deficiency anemia Hypothyroidism Patient Condition: Good Consults Dr. Garcia, gynecology Procedures None Hx of Present Illness cc; abnormal labs This is a 43-year-old female who is here for anemia. The patient saw her primary care physician for checkup and he called her and told her hemoglobin was 5.8 and to go to the ER. The patient complains of generalized weakness but no clear dyspnea on exertion. no heavy periods, no hematemesis, no rectal bleeding or melena, no vomiting. Patient says she has no chest pain no fever cough or abdominal pain. Apparently to the RN she reported a history of leukemia as a child however when questioned again regarding this she denies it. She does report anemia. On review of her medical records there was a mention of previous uterine fibroid. allergies: nkda meds: see apr Hospital Course Pelvic CT and US showed a 1.6 cm uterine fibroid and slightly thickened endometrial stripe. Patient had no vaginal bleed during admission. Gynecology was consulted and recommended outpatient evaluation for endometrial biopsy. She was transfused 2 units of blood to Hgb 8.3 and was also given ferrlicit for severe iron-deficiency anemia. She was also found to have hypothyroidism and was discharged on levothyroxine 125 mcg daily. Home Meds Active Scripts Levothyroxine Sodium* (Levothyroxine Sodium*) 125 Mcg Tablet, 125 MCG PO BEFORE BREAKFAST, #60 TAB 1 Refill Prov:LOUIE DE LA GARZA MD 07/30/18 Albuterol Sulfate* (Ventolin HFA*) 18 Gm Hfa.aer.ad, 2 PUFF INHALATION Q4H, #1 INHALER Prov:LOUIE DE LA GARZA MD 07/30/18 Ferrous Sulfate* (Ferrous Sulfate*) 325 Mg Tabec, 325 MG PO QHS, #90 TAB 2 Refills Prov:LOUIE DE LA GARZA MD 07/30/18 Discontinued Reported Medications Cyanocobalamin* (Vitamin B12*) 100 Mcg Tab, 100 MCG PO DAILY, TAB 01/08/14 Discontinued Scripts Methocarbamol* (Robaxin*) 500 Mg Tab, 500 MG PO Q6, #20 TAB Prov:SAIRA FRANCIS PA-C 01/24/18 Ibuprofen* (Motrin*) 600 Mg Tab, 600 MG PO Q6, #30 TAB Prov:SAIRA FRANCIS PA-C 01/24/18 Prednisone* (Prednisone*) 20 Mg Tab, 40 MG PO DAILY for 4 Days, TAB Prov:SAIRA FRANCIS PA-C 01/24/18 Methocarbamol* (Robaxin*) 500 Mg Tab, 500 MG PO Q8, #30 TAB Prov:GERI LEE DO 09/01/17 Ibuprofen* (Motrin*) 800 Mg Tab, 800 MG PO Q8H PRN for PAIN AND OR ELEVATED TEMP, #30 TAB Prov:GERI LEE DO 09/01/17 Acetaminophen* (Tylophen*) 500 Mg Capsule, 1 CAP PO Q6H PRN for PAIN AND OR ELEVATED TEMP, #20 CAP Prov:EDUAR ROBINS MD 03/21/17 Prednisone* (Prednisone*) 20 Mg Tab, 40 MG PO DAILY for 4 Days, TAB Start March 22, 2017 Prov:EDUAR ROBINS MD 03/21/17 Azithromycin* (Zithromax*) 250 Mg Tablet, 250 MG PO .ZPACK DIRECTED, #6 TAB TAKE 500 MG (2 TABS) THE FIRST DAY THEN 250 MG (1 TAB) DAYS 2-5 Prov:EDUAR ROBINS MD 03/21/17 Prednisone* (Prednisone*) 20 Mg Tab, 40 MG PO DAILY, #8 TAB 0 Refills Prov:APRIL POTTER PA-C 04/07/15 Albuterol Sulfate* (Ventolin HFA*) 18 Gm Hfa.aer.ad, 2 PUFF INHALATION Q6H, #1 INHALER 0 Refills Prov:APRIL POTTER PA-C 04/07/15 Albuterol Sulfate* (Ventolin HFA*) 18 Gm Hfa.aer.ad, 2 PUFF INHALATION Q6H, #1 INHALER 0 Refills Prov:APRIL POTTER PA-C 03/28/15 Follow-up Plan 1. Take levothyroxine early in the morning. Do not eat anything, especially milk or iron, within 2 hours before or after taking it. 2. Take iron tablet in the afternoon or before bed. It may cause constipation. For severe constipation can get [id number] Miralax or Senna. 3. Use albuterol inhaler as needed for wheezing. 4. Make an appointment with your primary care doctor. You should get your thyroid levels checked once a month. 5. Make an appointment with your bit shaver. You may need a biopsy of the lining of your uterus. 1. Valier levothyroxine temprano en la maana. No coma nada, especialmente leche o jaimie, dentro de las 2 horas antes o despus de tomarlo. 2. Valier la tableta de jaimie por la tarde o antes de acostarse. Puede causar estreimiento. Para el estreimiento cirilo puede obtener sin receta Miralax o Senna. 3. Use el inhalador de albuterol segn sea necesario para sibilancias. 4. Tangela myrna spencer con desir mdico de atencin primaria. Usted debe controlar rosalinda niveles de tiroides myrna vez al mes. 5. Tangela myrna spencer con desir gineclogo. Es posible que necesite myrna biopsia del revestimiento del tero. Primary Care Provider Not On Staff Doctor Time spent on discharge: > 30 minutes Pending Labs Laboratory Tests Test 07/30/18 05:58 White Blood Count 7.5 10^3/ul (4.8-10.8) Red Blood Count 3.59 10^6/ul (4.20-5.40) Hemoglobin 8.3 g/dl (12.0-16.0) Hematocrit 28.4 % (37.0-47.0) Mean Corpuscular Volume 79.1 fl (82.0-101.0) Mean Corpuscular Hemoglobin 23.1 pg (29.0-33.0) Mean Corpuscular Hemoglobin Concent 29.2 g/dl (32.0-37.0) Red Cell Distribution Width 19.0 % (11.5-14.5) Platelet Count 267 10^3/UL (140-415) Mean Platelet Volume 9.8 fl (7.4-10.4) Immature Granulocytes % 0.500 % (0.001-0.429) Neutrophils % 66.7 % (39.0-77.0) Lymphocytes % 22.1 % (15.0-51.0) Monocytes % 7.7 % (0.0-11.0) Eosinophils % 2.3 % (0.0-7.0) Basophils % 0.7 % (0.0-2.0) Nucleated Red Blood Cells % 0.0 /100WBC (0.0-0.0) Immature Granulocytes # 0.040 10^3/ul (0.0-0.031) Neutrophils # 5.0 10^3/ul (1.6-7.5) Lymphocytes # 1.7 10^3/ul (0.8-2.9) Monocytes # 0.6 10^3/ul (0.3-0.9) Eosinophils # 0.2 10^3/ul (0.0-0.5) Basophils # 0.1 10^3/ul (0.0-0.1) Nucleated Red Blood Cells # 0.0 10^3/ul (0.0-0.0) Sodium Level 139 mmol/L (135-144) Potassium Level 4.0 mmol/L (3.5-5.1) Chloride Level 103 mmol/L (97-110) Carbon Dioxide Level 28 mmol/L (21-31) Anion Gap 8 (5-13) Blood Urea Nitrogen 10 mg/dl (7-20) Creatinine 0.80 mg/dl (0.44-1.00) Est Glomerular Filtrat Rate mL/min > 60 mL/min (>60) Glucose Level 104 mg/dl (70-220) Calcium Level 9.2 mg/dl (8.4-10.2) Total Bilirubin 0.4 mg/dl (0.2-1.3) Direct Bilirubin 0.00 mg/dl (0.00-0.20) Indirect Bilirubin 0.4 mg/dl (0-1.1) Aspartate Amino Transf (AST/SGOT) 34 IU/L (15-46) Alanine Aminotransferase (ALT/SGPT) 51 IU/L (13-69) Alkaline Phosphatase 61 IU/L (42-121) Total Protein 7.6 g/dl (6.1-8.1) Albumin 4.0 g/dl (3.3-4.9) Globulin 3.60 g/dl (1.3-3.2) Albumin/Globulin Ratio 1.11 LOUIE DE LA GARZA MD Jul 30, 2018 15:20
== END 2018-07-30 13:23 | disposition home or self-care (01) | DRG 812 ==
LOC: E/R 14:08 → TEL 19:37
PROVIDERS: ADMIT Family Medicine; ATTEND Internal Medicine
PROC: 30233N1 Transfusion of Nonautologous Red Blood Cells into Peripheral Vein, Percutaneous Approach (ICD-10-PCS; principal; 2018-07-28)
DX: D50.9 Iron deficiency anemia, unspecified (principal); J45.909 Unspecified asthma, uncomplicated; E66.01 Morbid (severe) obesity due to excess calories; Z68.39 Body mass index [BMI] 39.0-39.9, adult; E03.9 Hypothyroidism, unspecified; R73.03 Prediabetes
CPT/HCPCS: 36415; 36430; 71045; 74178; 74183; 76830; 76856; 80053; 80061; 82270; 82306; 82728; 83010; 83036; 83540; 83615; 83735; 84439; 84443; 84703; 85025; 85045; 85610; 85730; 86850; 86900; 86901; 86920; C9113; J2916; P9016; Q9967